=== PATIENT | male | born 1945 | race Caucasian/White ===

== ENCOUNTER → 2016-04-07 | Outpatient (CLI) | payer MEDICARE, OTHER ==
[~2016-04-07] MED LIST: ASPIR 8181 M1 PO; AVODART0.5 MG PO; Aspirin Chewable PO; CALCIUM600 M1 PO; CALTRATE 6001 TABLET PO; CASODEX50 MG PO; CRESTOR10 MG PO; Casodex PO; HYDROCHLOROTH12.5 M3 PO; Hydrodiuril,Oretic,E PO; JANUVIA100 MG PO; LISINOPRIL10 MG PO; VITAMIN D31000 UNI2 PO; Vitamin-E PO; Zestril,Prinivil PO; oxyCODONE PO
== END | disposition home or self-care (01) ==
LOC: CDC 12:26
DX: Z01.810 Encounter for preprocedural cardiovascular examination (principal)
CPT/HCPCS: 93000

== ENCOUNTER 2016-07-03 19:56 | Emergency (ER) | payer OTHER ==
[~2016-07-03] VITALS: Ht 177.8 cm; Wt 120.5 kg
[~2016-07-03 19:56] MED LIST changes: +GLIMEPIRIDE1 MG PO; +LANSOPRAZOLE30 MG PO
[2016-07-03 20:31] LABS: BASOPHIL COUNT 0.1 K/uL (0-0.1); EOSINOPHIL (%) 2.4 % (0-5); EOSINOPHIL COUNT 0.4 K/uL (0-0.3); HEMATOCRIT 45.8 % (38.0-50.0); IMMATURE GRANULOCYTE (%) 0.6 % (0.0-0.7); IMMATURE GRANULOCYTE COUNT 0.1 K/uL; INSTRUMENT ABS NEUTROPHIL CT 11.7 K/uL; LYMPHOCYTE COUNT 2.1 K/uL (1.0-2.8); MCH 29.1 PG (29.0-34.0); MCHC 32.1 G/DL (30.0-36.0); MCV 90.5 FL (86-99); MONOCYTE (%) 7.6 % (3-12); MONOCYTE COUNT 1.2 K/uL (0-0.8); NEUTROPHIL (%) 75.1 % (45-76); NEUTROPHIL COUNT 11.7 K/uL (1.8-6.4); PLATELET COUNT 394 K/uL (156-360); RBC DIS.WIDTH-CV 15.4 % (11.8-14.6); RBC DIS.WIDTH-SD 51.4 % (39-53); RED BLOOD COUNT 5.06 M/uL (4.00-5.50); WHITE BLOOD COUNT 15.6 K/uL (4.1-10.2)
[2016-07-03 20:39] LABS: CHLORIDE 103 mEq/L (99-109); POTASSIUM 3.9 mEq/L (3.7-5.4); SODIUM 135 mEq/L (136-147)
[2016-07-03 20:41] LABS: GLUCOSE 118 mg/dL (70-99)
[2016-07-03 20:42] LABS: ANION GAP 11 MEQ/L (2-14)
[2016-07-03 20:45] LABS: GFR ESTIMATE (CALCULATED) 53 mL/min/
[2016-07-03 20:46] LABS: UREA NITROGEN (BUN) 24 mg/dL (9-23)
[2016-07-03 20:55] LABS: PROTHROMBIN TIME 10.3 (9.2-11.2); PTT 27.1 (25-32)
[2016-07-03 21:33] LABS: ADD MIUA? YES; BILIRUBIN NEGATIVE; BLOOD LARGE; GLUCOSE (STRIP) NEGATIVE; KETONES NEGATIVE; LEUKOCYTES LARGE; NITRITE NEGATIVE; PROTEIN (STRIP) 100; SPECIFIC GRAVITY 1.018 (1.000-1.030); UROBILINOGEN 0.2 MG/DL (0.2-1.0)
[2016-07-03 21:34] LABS: COLOR RED ((YELLOW))
[2016-07-03 21:42] LABS: AMORPHOUS URATES CRYSTALS 1+; BACTERIA NONE SEEN /HPF; CASTS NONE SEEN /LPF; CRYSTALS PRESENT; EPITHELIAL CELLS NONE SEEN /HPF; MUCUS NONE SEEN /LPF; RED BLOOD CELLS TNTC /HPF (0-5); UCUL ADDED? NO
[2016-07-03] MEDS ORDERED: KEFLEX500 MG PO (23:55)
[2016-07-04 00:11] VITALS: BP 124/82
== END 2016-07-04 00:35 | disposition home or self-care (01) ==
LOC: EME 19:56
PROVIDERS: Emergency Medicine
PROC: 0T9B70Z Drainage of Bladder with Drainage Device, Via Natural or Artificial Opening (ICD-10-PCS; principal; 2016-07-03)
DX: R31.9 Hematuria, unspecified (principal); N39.0 Urinary tract infection, site not specified; Z85.51 Personal history of malignant neoplasm of bladder; I10 Essential (primary) hypertension; E11.9 Type 2 diabetes mellitus without complications; J44.9 Chronic obstructive pulmonary disease, unspecified; Z98.890 Other specified postprocedural states; E78.5 Hyperlipidemia, unspecified; Z85.46 Personal history of malignant neoplasm of prostate; Z79.84 Long term (current) use of oral hypoglycemic drugs; Z79.82 Long term (current) use of aspirin; Z87.891 Personal history of nicotine dependence
CPT/HCPCS: 80048; 81003; 85025; 85610; 85730; 99281; 99285

== ENCOUNTER → 2016-07-06 | Outpatient (CLI) | payer OTHER ==
[~2016-07-06] MED LIST changes: +KEFLEX500 MG PO; +XARELTO15 MG PO
[2016-07-06 12:34] LABS: POINT-OF-CARE METER ID UU13113819
== END | disposition home or self-care (01) ==
LOC: OPR 09:55 → EDSTATUS 10:00 → OPR 10:00
PROVIDERS: Internal Medicine
PROC: 0FB13ZX Excision of Right Lobe Liver, Percutaneous Approach, Diagnostic (ICD-10-PCS; principal; 2016-07-06)
DX: C78.7 Secondary malignant neoplasm of liver and intrahepatic bile duct (principal); C61 Malignant neoplasm of prostate; I10 Essential (primary) hypertension; E11.9 Type 2 diabetes mellitus without complications; E78.5 Hyperlipidemia, unspecified; E66.01 Morbid (severe) obesity due to excess calories; Z87.891 Personal history of nicotine dependence; Z79.82 Long term (current) use of aspirin; Z68.39 Body mass index [BMI] 39.0-39.9, adult
CPT/HCPCS: 77012; 82948; 88307; 88341 TC; 88342 TC; J3010

== ENCOUNTER 2016-07-25 08:31 | Inpatient (IN) | payer OTHER ==
[~2016-07-25] VITALS: Ht 177.8 cm; Wt 117.4 kg
[2016-07-25] VITALS (8 sets, daily range): BP systolic 109–120; BP diastolic 56–960
[2016-07-25 10:48] LABS: HEMATOCRIT 36.2 % (38.0-50.0); MCH 29.3 PG (29.0-34.0); MCV 91.4 FL (86-99); RBC DIS.WIDTH-CV 14.6 % (11.8-14.6); RBC DIS.WIDTH-SD 49.1 % (39-53)
[2016-07-25 10:52] LABS: INTER. NORMALIZED RATIO 1.3; PROTHROMBIN TIME 13.7 (9.2-11.2)
[2016-07-25 10:56] LABS: CHLORIDE 101 mEq/L (99-109); POTASSIUM 3.5 mEq/L (3.7-5.4); SODIUM 137 mEq/L (136-147)
[2016-07-25 10:58] LABS: GLUCOSE 112 mg/dL (70-99)
[2016-07-25 10:59] LABS: ANION GAP 11 MEQ/L (2-14)
[2016-07-25 11:01] LABS: GFR ESTIMATE (CALCULATED) > 59 mL/min/
[2016-07-25 11:02] LABS: UREA NITROGEN (BUN) 17 mg/dL (9-23)
[2016-07-25 11:45] LABS: IMM.PLATELET FRACTION 3.8 (1-7)
[2016-07-25 11:56] LABS: PLATELET COUNT 39 K/uL (156-360); RED BLOOD COUNT 3.96 M/uL (4.00-5.50); WHITE BLOOD COUNT 5.7 K/uL (4.1-10.2)
[2016-07-25 15:06] LABS: HEMATOCRIT 33.7 % (38.0-50.0); MCV 90.3 FL (86-99)
[2016-07-25 18:05] LABS: MCV 90.7 FL (86-99)
[2016-07-25 21:11] LABS: POINT-OF-CARE METER ID UU13113725
[2016-07-26 00:39] LABS: HEMATOCRIT 30.1 % (38.0-50.0); MCV 89.9 FL (86-99)
[2016-07-26 03:41] VITALS: BP 106/60
[2016-07-26 05:41] LABS: POINT-OF-CARE METER ID UU13113725
[2016-07-26 06:27] LABS: HEMATOCRIT 28.7 % (38.0-50.0); MCV 91.1 FL (86-99)
[2016-07-26 07:19] VITALS: BP 118/59
[2016-07-26 07:30] LABS: ALKALINE PHOSPHATASE 74 IU/L (3-129); ANION GAP 9 MEQ/L (2-14); CHLORIDE 102 MEQ/L (99-109); GFR ESTIMATE (CALCULATED) > 59 mL/min/; GLUCOSE 93 mg/dL (70-99); POTASSIUM 3.2 MEQ/L (3.7-5.4); SAMPLE HEMOLYSIS CHECK 0; SAMPLE ICTERIC CHECK 0; SAMPLE LIPEMIA CHECK 0; SODIUM 140 MEQ/L (136-147); TOTAL BILIRUBIN 0.3 MG/DL (0.0-1.0); UREA NITROGEN (BUN) 24 mg/dL (9-23)
[2016-07-26 08:01] LABS: MCH 29.1 PG (29.0-34.0); RBC DIS.WIDTH-CV 14.6 % (11.8-14.6); RBC DIS.WIDTH-SD 48.5 % (39-53); RED BLOOD COUNT 3.27 M/uL (4.00-5.50)
[2016-07-26 08:20] LABS: ABS NEUTROPHIL COUNT 5.7; ATYPICAL LYMPHOCYTE 1.8 %; BAND NEUTROPHILS 7.1 % (0-8.0); BASOPHILS 0.9 %; EOSINOPHIL ABS CT 0; INSTRUMENT ABS NEUTROPHIL CT 4.7 K/uL; LYMPHOCYTES 22.1 % (15.0-45.0); PLAT.SUFFICIENCY DECREASED; SEG.NEUTROPHILS 64.6 % (46.0-76.0)
[2016-07-26 08:23] LABS: PLATELET COUNT 69 K/uL (156-360)
[2016-07-26 11:12] VITALS: BP 131/61
[2016-07-26 11:31] LABS: POINT-OF-CARE METER ID UU13113725
[2016-07-26 15:00] VITALS: BP 94/50
[2016-07-26 19:08] VITALS: BP 109/56
[2016-07-26 22:51] VITALS: BP 110/55
[2016-07-27 03:52] VITALS: BP 106/52
[2016-07-27 07:10] VITALS: BP 103/55
[2016-07-27 07:33] LABS: MCH 30.2 PG (29.0-34.0); MCHC 32.9 G/DL (30.0-36.0); MCV 91.7 FL (86-99); MEAN PLAT.VOLUME 9.8 uM^3 (9.0-12.4); PLATELET COUNT 67 K/uL (156-360); RBC DIS.WIDTH-CV 14.7 % (11.8-14.6); RBC DIS.WIDTH-SD 49.5 % (39-53); RED BLOOD COUNT 3.38 M/uL (4.00-5.50); WHITE BLOOD COUNT 10.2 K/uL (4.1-10.2)
[2016-07-27 08:00] LABS: ANION GAP 8 MEQ/L (2-14); CHLORIDE 106 MEQ/L (99-109); GFR ESTIMATE (CALCULATED) > 59 mL/min/; GLUCOSE 106 mg/dL (70-99); POTASSIUM 3.5 MEQ/L (3.7-5.4); SAMPLE HEMOLYSIS CHECK 0; SAMPLE ICTERIC CHECK 0; SAMPLE LIPEMIA CHECK 0; SODIUM 142 MEQ/L (136-147); UREA NITROGEN (BUN) 20 mg/dL (9-23)
[2016-07-27 13:13] LABS: POINT-OF-CARE METER ID UU13113725
[2016-07-27 15:04] LABS: POINT-OF-CARE METER ID UU13113819
[2016-07-27 15:58] VITALS: BP 114/56
[2016-07-27 23:38] VITALS: BP 117/56
[2016-07-28 06:22] LABS: POINT-OF-CARE METER ID UU13113725
[2016-07-28 07:17] LABS: HEMATOCRIT 30.9 % (38.0-50.0); MCH 29.3 PG (29.0-34.0); MCHC 31.7 G/DL (30.0-36.0); MCV 92.2 FL (86-99); MEAN PLAT.VOLUME 10.8 uM^3 (9.0-12.4); PLATELET COUNT 71 K/uL (156-360); RBC DIS.WIDTH-CV 14.8 % (11.8-14.6); RBC DIS.WIDTH-SD 50.3 % (39-53); RED BLOOD COUNT 3.35 M/uL (4.00-5.50); WHITE BLOOD COUNT 11.1 K/uL (4.1-10.2)
[2016-07-28 07:47] LABS: ANION GAP 6 MEQ/L (2-14); CHLORIDE 106 MEQ/L (99-109); GFR ESTIMATE (CALCULATED) > 59 mL/min/; GLUCOSE 93 mg/dL (70-99); POTASSIUM 3.6 MEQ/L (3.7-5.4); SAMPLE HEMOLYSIS CHECK 0; SAMPLE ICTERIC CHECK 0; SAMPLE LIPEMIA CHECK 0; SODIUM 140 MEQ/L (136-147); UREA NITROGEN (BUN) 18 mg/dL (9-23)
[2016-07-28 08:25] VITALS: BP 111/60
[2016-07-28] MEDS ORDERED: PANTOPRAZOLE SO40 MG PO (10:01)
== END 2016-07-28 11:33 | disposition home or self-care (01) | DRG 378 ==
LOC: EME 08:31 → EDOF 12:21 → 5EAST 12:21 → EDOF 12:21 → 5EAST 13:22
PROVIDERS: Hospitalist; Internal Medicine
DX: K26.4 Chronic or unspecified duodenal ulcer with hemorrhage (principal); T45.515A Adverse effect of anticoagulants, initial encounter; D50.0 Iron deficiency anemia secondary to blood loss (chronic); K29.70 Gastritis, unspecified, without bleeding; C78.7 Secondary malignant neoplasm of liver and intrahepatic bile duct; C78.00 Secondary malignant neoplasm of unspecified lung; D69.6 Thrombocytopenia, unspecified; E87.6 Hypokalemia; K44.9 Diaphragmatic hernia without obstruction or gangrene; J44.9 Chronic obstructive pulmonary disease, unspecified; I10 Essential (primary) hypertension; E78.00 Pure hypercholesterolemia, unspecified; E11.9 Type 2 diabetes mellitus without complications; E78.5 Hyperlipidemia, unspecified; E66.9 Obesity, unspecified; Z68.37 Body mass index [BMI] 37.0-37.9, adult; Z86.711 Personal history of pulmonary embolism; Z79.01 Long term (current) use of anticoagulants; Z79.899 Other long term (current) drug therapy; Z85.51 Personal history of malignant neoplasm of bladder; Z85.46 Personal history of malignant neoplasm of prostate; Z90.79 Acquired absence of other genital organ(s); Z87.891 Personal history of nicotine dependence
CPT/HCPCS: 80048; 80053; 82948; 85014; 85018; 85025; 85027; 85610; 86900; 86901; 86920; 88305; 88342 TC; 99281; 99285; C9113; G0378; J1815; P9035

== ENCOUNTER 2016-08-10 13:36 | Emergency (ER) | payer OTHER ==
[~2016-08-10] VITALS: Ht 177.8 cm; Wt 118.6 kg
[~2016-08-10 13:36] MED LIST changes: +PANTOPRAZOLE SO40 MG PO
[2016-08-10 16:12] VITALS: BP 120/65
== END 2016-08-10 16:13 | disposition home or self-care (01) ==
LOC: EME 13:36
PROC: 0HQ1XZZ Repair Face Skin, External Approach (ICD-10-PCS; principal; 2016-08-10)
DX: S01.81XA Laceration without foreign body of other part of head, initial encounter (principal); S00.83XA Contusion of other part of head, initial encounter; S51.011A Laceration without foreign body of right elbow, initial encounter; W10.1XXA Fall (on)(from) sidewalk curb, initial encounter; Y92.481 Parking lot as the place of occurrence of the external cause; C61 Malignant neoplasm of prostate; E11.9 Type 2 diabetes mellitus without complications; J44.9 Chronic obstructive pulmonary disease, unspecified; E78.5 Hyperlipidemia, unspecified; K21.9 Gastro-esophageal reflux disease without esophagitis; Z87.891 Personal history of nicotine dependence
CPT/HCPCS: 70450; 70480; 99281; 99284

== ENCOUNTER 2017-01-20 06:19 | Inpatient (IN) | payer OTHER ==
[~2017-01-20] VITALS: Ht 180.3 cm; Wt 109.5 kg
[~2017-01-20 06:19] MED LIST changes: +ALDACTONE25 MG PO; +IRON325 M1 PO; +XARELTO20 MG PO
[2017-01-20 06:51] LABS: HEMATOCRIT 29.9 % (38.0-50.0); MCH 32.3 PG (29.0-34.0); MCHC 31.4 G/DL (30.0-36.0); MCV 102.7 FL (86-99); PLATELET COUNT 399 K/uL (156-360); RBC DIS.WIDTH-CV 17.2 % (11.8-14.6); RBC DIS.WIDTH-SD 65.4 % (39-53); RED BLOOD COUNT 2.91 M/uL (4.00-5.50); WHITE BLOOD COUNT 19.8 K/uL (4.1-10.2)
[2017-01-20 07:13] LABS: INTER. NORMALIZED RATIO 1.3; PROTHROMBIN TIME 14.9 SEC (10.2-12.9)
[2017-01-20 07:15] LABS: PTT 26.7 SEC (25-37)
[2017-01-20 07:56] LABS: CHLORIDE 102 mEq/L (99-109); POTASSIUM 4.9 mEq/L (3.7-5.4); SODIUM 135 mEq/L (136-147)
[2017-01-20 07:57] LABS: GLUCOSE 120 mg/dL (70-99)
[2017-01-20 07:59] LABS: ANION GAP 8 MEQ/L (2-14)
[2017-01-20 08:01] LABS: GFR ESTIMATE (CALCULATED) 15 mL/min/
[2017-01-20 08:02] LABS: UREA NITROGEN (BUN) 33 mg/dL (9-23)
[2017-01-20 08:08] LABS: TROP-I INTERPRETATION NEGATIVE; TROPONIN-I < 0.01 ng/mL (0.0-0.30)
[2017-01-20 11:23] LABS: ADD MIUA? YES; BILIRUBIN NEGATIVE; BLOOD LARGE; COLOR RED ((YELLOW)); GLUCOSE (STRIP) NEGATIVE; KETONES NEGATIVE; LEUKOCYTES NEGATIVE; NITRITE NEGATIVE; PROTEIN (STRIP) 300; SPECIFIC GRAVITY 1.015 (1.000-1.030); UROBILINOGEN 0.2 MG/DL (0.2-1.0)
[2017-01-20 11:24] LABS: RED BLOOD CELLS TNTC /HPF (0-5); UCUL ADDED? YES
[2017-01-20] MEDS ORDERED: PROTONIX40 MG PO (11:27)
[2017-01-20] MEDS ORDERED: TYLENOL EXTRA500 MG PO (11:28)
[2017-01-20] MEDS ORDERED: LASIX40 MG PO (11:28)
[2017-01-20] MEDS ORDERED: POTASSIUM CHLO20 ME2 PO (11:29)
[2017-01-20 12:18] VITALS: BP 140/64
[2017-01-20 15:23] VITALS: BP 110/50
[2017-01-20 15:59] LABS: HEMATOCRIT 26.3 % (38.0-50.0); MCV 104.4 FL (86-99)
[2017-01-20 19:55] VITALS: BP 101/56
[2017-01-20 23:46] VITALS: BP 108/57
[2017-01-21 00:15] LABS: HEMATOCRIT 24.9 % (38.0-50.0); MCV 102.9 FL (86-99)
[2017-01-21 03:43] VITALS: BP 102/55
[2017-01-21 06:02] LABS: HEMATOCRIT 26.4 % (38.0-50.0); MCH 31.9 PG (29.0-34.0); MCHC 31.1 G/DL (30.0-36.0); MCV 102.7 FL (86-99); MEAN PLAT.VOLUME 9.1 uM^3 (9.0-12.4); PLATELET COUNT 349 K/uL (156-360); RBC DIS.WIDTH-CV 17.2 % (11.8-14.6); RBC DIS.WIDTH-SD 65.4 % (39-53); RED BLOOD COUNT 2.57 M/uL (4.00-5.50)
[2017-01-21 06:25] LABS: ANION GAP 9 MEQ/L (2-14); CHLORIDE 104 MEQ/L (99-109); GFR ESTIMATE (CALCULATED) 24 mL/min/; GLUCOSE 99 mg/dL (70-99); POTASSIUM 4.5 MEQ/L (3.7-5.4); SAMPLE HEMOLYSIS CHECK 0; SAMPLE ICTERIC CHECK 0; SAMPLE LIPEMIA CHECK 0; SODIUM 138 MEQ/L (136-147); UREA NITROGEN (BUN) 28 mg/dL (9-23)
[2017-01-21 07:25] VITALS: BP 116/56
[2017-01-21 11:35] VITALS: BP 132/62
[2017-01-21 15:14] VITALS: BP 128/60
[2017-01-21 16:33] LABS: HEMATOCRIT 26.3 % (38.0-50.0); MCV 102.3 FL (86-99)
[2017-01-21 19:13] VITALS: BP 117/61
[2017-01-21 19:13] LABS: HEMATOCRIT 25.9 % (38.0-50.0); MCH 33.2 PG (29.0-34.0); MCV 103.6 FL (86-99); MEAN PLAT.VOLUME 8.8 uM^3 (9.0-12.4); PLATELET COUNT 298 K/uL (156-360); RBC DIS.WIDTH-CV 17.2 % (11.8-14.6); RBC DIS.WIDTH-SD 65.7 % (39-53); WHITE BLOOD COUNT 19.9 K/uL (4.1-10.2)
[2017-01-21 23:39] VITALS: BP 105/57
[2017-01-22 00:43] LABS: MCV 101.6 FL (86-99)
[2017-01-22 04:34] VITALS: BP 108/59
[2017-01-22 06:09] LABS: BASOPHIL COUNT 0.1 K/uL (0-0.1); EOSINOPHIL (%) 0.2 % (0-5); HEMATOCRIT 25.9 % (38.0-50.0); IMMATURE GRANULOCYTE (%) 0.9 % (0.0-0.7); IMMATURE GRANULOCYTE COUNT 0.2 K/uL; INSTRUMENT ABS NEUTROPHIL CT 15.4 K/uL; LYMPHOCYTE COUNT 0.9 K/uL (1.0-2.8); MCH 33.5 PG (29.0-34.0); MCHC 32.8 G/DL (30.0-36.0); MEAN PLAT.VOLUME 9.2 uM^3 (9.0-12.4); MONOCYTE (%) 11.3 % (3-12); MONOCYTE COUNT 2.1 K/uL (0-0.8); NEUTROPHIL (%) 82.5 % (45-76); NEUTROPHIL COUNT 15.4 K/uL (1.8-6.4); PLATELET COUNT 325 K/uL (156-360); RBC DIS.WIDTH-CV 16.9 % (11.8-14.6); RBC DIS.WIDTH-SD 63.4 % (39-53); RED BLOOD COUNT 2.54 M/uL (4.00-5.50); WHITE BLOOD COUNT 18.6 K/uL (4.1-10.2)
[2017-01-22 06:33] LABS: ANION GAP 8 MEQ/L (2-14); CHLORIDE 101 MEQ/L (99-109); GFR ESTIMATE (CALCULATED) 40 mL/min/; GLUCOSE 104 mg/dL (70-99); POTASSIUM 3.9 MEQ/L (3.7-5.4); SAMPLE HEMOLYSIS CHECK 0; SAMPLE ICTERIC CHECK 0; SAMPLE LIPEMIA CHECK 0; SODIUM 135 MEQ/L (136-147); UREA NITROGEN (BUN) 22 mg/dL (9-23)
[2017-01-22 08:01] VITALS: BP 130/63
[2017-01-22 11:57] VITALS: BP 140/62
[2017-01-22 15:23] VITALS: BP 149/67
[2017-01-22 15:51] LABS: HEMATOCRIT 27.4 % (38.0-50.0); MCV 101.5 FL (86-99)
[2017-01-22 23:32] VITALS: BP 127/62
[2017-01-23 00:37] LABS: HEMATOCRIT 26.1 % (38.0-50.0); MCV 101.2 FL (86-99)
[2017-01-23 05:57] LABS: BASOPHIL COUNT 0.1 K/uL (0-0.1); EOSINOPHIL (%) 0.4 % (0-5); EOSINOPHIL COUNT 0.1 K/uL (0-0.3); IMMATURE GRANULOCYTE (%) 0.7 % (0.0-0.7); IMMATURE GRANULOCYTE COUNT 0.2 K/uL; INSTRUMENT ABS NEUTROPHIL CT 16.6 K/uL; LYMPHOCYTE COUNT 1.2 K/uL (1.0-2.8); MCH 33.2 PG (29.0-34.0); MCHC 32.6 G/DL (30.0-36.0); MCV 101.9 FL (86-99); MEAN PLAT.VOLUME 9.1 uM^3 (9.0-12.4); MONOCYTE (%) 10.2 % (3-12); MONOCYTE COUNT 2.1 K/uL (0-0.8); NEUTROPHIL (%) 82.5 % (45-76); NEUTROPHIL COUNT 16.6 K/uL (1.8-6.4); PLATELET COUNT 378 K/uL (156-360); RBC DIS.WIDTH-CV 16.7 % (11.8-14.6); RBC DIS.WIDTH-SD 62.8 % (39-53); RED BLOOD COUNT 2.65 M/uL (4.00-5.50); WHITE BLOOD COUNT 20.1 K/uL (4.1-10.2)
[2017-01-23 06:25] LABS: ANION GAP 8 MEQ/L (2-14); CHLORIDE 100 MEQ/L (99-109); GFR ESTIMATE (CALCULATED) 53 mL/min/; GLUCOSE 100 mg/dL (70-99); POTASSIUM 3.9 MEQ/L (3.7-5.4); SAMPLE HEMOLYSIS CHECK 0; SAMPLE ICTERIC CHECK 0; SAMPLE LIPEMIA CHECK 0; SODIUM 135 MEQ/L (136-147); UREA NITROGEN (BUN) 19 mg/dL (9-23)
[2017-01-23 07:10] VITALS: BP 111/65
[2017-01-23 15:50] LABS: HEMATOCRIT 25.3 % (38.0-50.0); MCV 101.2 FL (86-99)
[2017-01-23 16:36] VITALS: BP 127/60
[2017-01-23 23:50] VITALS: BP 135/66
[2017-01-24 01:40] LABS: HEMATOCRIT 26.4 % (38.0-50.0); MCV 101.1 FL (86-99)
[2017-01-24 06:33] LABS: ANION GAP 5 MEQ/L (2-14); CHLORIDE 99 MEQ/L (99-109); GFR ESTIMATE (CALCULATED) 58 mL/min/; GLUCOSE 113 mg/dL (70-99); POTASSIUM 4.2 MEQ/L (3.7-5.4); SAMPLE HEMOLYSIS CHECK 0; SAMPLE ICTERIC CHECK 0; SAMPLE LIPEMIA CHECK 0; SODIUM 133 MEQ/L (136-147); UREA NITROGEN (BUN) 21 mg/dL (9-23)
[2017-01-24 07:14] VITALS: BP 130/60
[2017-01-24 13:29] LABS: HEMATOCRIT 26.4 % (38.0-50.0); MCH 32.4 PG (29.0-34.0); MCHC 32.2 G/DL (30.0-36.0); MCV 100.8 FL (86-99); PLATELET COUNT 453 K/uL (156-360); RBC DIS.WIDTH-CV 16.5 % (11.8-14.6); RBC DIS.WIDTH-SD 61.1 % (39-53); RED BLOOD COUNT 2.62 M/uL (4.00-5.50); WHITE BLOOD COUNT 17.6 K/uL (4.1-10.2)
[2017-01-24 14:21] LABS: BASOPHIL COUNT 0.1 K/uL (0-0.1); EOSINOPHIL (%) 0.6 % (0-5); EOSINOPHIL COUNT 0.1 K/uL (0-0.3); HEMATOCRIT 25.3 % (38.0-50.0); IMMATURE GRANULOCYTE COUNT 0.2 K/uL; INSTRUMENT ABS NEUTROPHIL CT 14.7 K/uL; LYMPHOCYTE COUNT 1.2 K/uL (1.0-2.8); MCH 33.1 PG (29.0-34.0); MCHC 32.8 G/DL (30.0-36.0); MCV 100.8 FL (86-99); MEAN PLAT.VOLUME 8.7 uM^3 (9.0-12.4); MONOCYTE (%) 10.5 % (3-12); MONOCYTE COUNT 1.9 K/uL (0-0.8); NEUTROPHIL (%) 81.1 % (45-76); NEUTROPHIL COUNT 14.7 K/uL (1.8-6.4); PLATELET COUNT 432 K/uL (156-360); RBC DIS.WIDTH-CV 16.6 % (11.8-14.6); RBC DIS.WIDTH-SD 61.1 % (39-53); RED BLOOD COUNT 2.51 M/uL (4.00-5.50); WHITE BLOOD COUNT 18.2 K/uL (4.1-10.2)
[2017-01-24] MEDS ORDERED: CIPRO500 MG PO (14:45)
[2017-01-24 16:07] VITALS: BP 112/65
== END 2017-01-24 17:52 | disposition home health service (06) | DRG 683 ==
LOC: EME 06:19 → 5EAST 10:50 → EDOF 10:50 → ENRESERV 10:59 → EDOF 11:23 → ENRESERV 11:27 → 5EAST 11:58
PROVIDERS: Emergency Medicine; Hospitalist
DX: N17.9 Acute kidney failure, unspecified (principal); C79.11 Secondary malignant neoplasm of bladder; C78.7 Secondary malignant neoplasm of liver and intrahepatic bile duct; N13.4 Hydroureter; C78.01 Secondary malignant neoplasm of right lung; C79.51 Secondary malignant neoplasm of bone; E11.9 Type 2 diabetes mellitus without complications; E78.5 Hyperlipidemia, unspecified; J43.9 Emphysema, unspecified; K21.9 Gastro-esophageal reflux disease without esophagitis; N13.39 Other hydronephrosis; N28.1 Cyst of kidney, acquired; N32.0 Bladder-neck obstruction; R31.0 Gross hematuria; R33.9 Retention of urine, unspecified; E66.9 Obesity, unspecified; Z68.33 Body mass index [BMI] 33.0-33.9, adult; Z79.01 Long term (current) use of anticoagulants; Z85.51 Personal history of malignant neoplasm of bladder; Z87.11 Personal history of peptic ulcer disease; Z86.711 Personal history of pulmonary embolism; Z90.79 Acquired absence of other genital organ(s); Z87.891 Personal history of nicotine dependence; Z82.49 Family history of ischemic heart disease and other diseases of the circulatory system; Z83.3 Family history of diabetes mellitus
CPT/HCPCS: 71010; 74176; 76770; 80048; 81003; 83605; 84484; 85014; 85018; 85025; 85027; 85610; 85730; 86850; 86900; 86901; 87040; 87086; 93005; 99281; 99285; C9113; J0696; J2270; J2405; J7030

== ENCOUNTER → 2017-02-08 | Outpatient (CLI) | payer OTHER ==
[~2017-02-08] MED LIST changes: +CIPRO500 MG PO; +LASIX40 MG PO; +POTASSIUM CHLO20 ME2 PO; +PROTONIX40 MG PO; +TYLENOL EXTRA500 MG PO
== END | disposition home or self-care (01) ==
LOC: PICC 10:46
DX: Z79.899 Other long term (current) drug therapy (principal); C61 Malignant neoplasm of prostate
CPT/HCPCS: 76937

== ENCOUNTER 2017-03-21 06:43 | Day surgery (SDC) | payer OTHER ==
[~2017-03-21] VITALS: Ht 177.8 cm; Wt 106.2 kg
[~2017-03-21 06:43] MED LIST changes: +CALCIUM + D3 E1 EACH PO; +K-DUR20 MEQ PO; +OXAYDO5 MG PO
[2017-03-21 07:39] VITALS: BP 135/62
[2017-03-21 10:13] VITALS: BP 148/69
[2017-03-21 11:33] VITALS: BP 146/69
[2017-03-21 11:55] VITALS: BP 142/72
== END 2017-03-21 11:55 | disposition home or self-care (01) ==
LOC: SDC 06:43
DX: N32.0 Bladder-neck obstruction (principal); C67.8 Malignant neoplasm of overlapping sites of bladder; Z85.46 Personal history of malignant neoplasm of prostate; C34.90 Malignant neoplasm of unspecified part of unspecified bronchus or lung; Z86.711 Personal history of pulmonary embolism; Z79.01 Long term (current) use of anticoagulants; E11.22 Type 2 diabetes mellitus with diabetic chronic kidney disease; I12.9 Hypertensive chronic kidney disease with stage 1 through stage 4 chronic kidney disease, or unspecified chronic kidney disease; N18.9 Chronic kidney disease, unspecified; N32.81 Overactive bladder; Z90.49 Acquired absence of other specified parts of digestive tract; Z90.79 Acquired absence of other genital organ(s); N13.4 Hydroureter; N13.30 Unspecified hydronephrosis; Z87.440 Personal history of urinary (tract) infections; Z87.891 Personal history of nicotine dependence; Z82.49 Family history of ischemic heart disease and other diseases of the circulatory system; Z83.3 Family history of diabetes mellitus; Z80.9 Family history of malignant neoplasm, unspecified; E66.01 Morbid (severe) obesity due to excess calories; Z68.35 Body mass index [BMI] 35.0-35.9, adult; N39.41 Urge incontinence
CPT/HCPCS: 88305; J0690; J1100; J1885; J2405; J3010